=== PATIENT | male | born 1955 | race Caucasian/White ===

== ENCOUNTER → 2022-09-30 08:40 | Outpatient (CLI) | payer MEDICARE, SELFPAY ==
--- NOTE | 2022-09-30 | DI.ECHO.S_ITS ---
[facility]---------+ [facility] +---------+ : : [address] : : : : [id number] : : : : Phone: [phone]+ Echocardiogram Report + + :Name: JARED SHOEMAKER Study Date: 09/30/2022 Height: 70 in : :[facility] ReadingLocation: Weight: 249 lb : : Gender: Male BSA: 2.3 m2 : :: 1955 Age: 67 yrs BP: 165/100 mmHg: :Reason For Study: AORTIC STENOSIS, S/P TAVR : :Ordering Physician: CHARLOTTE WING : :M Performed By: Tania Haro : :Referring: CHARLOTTE WING M : + + Interpretation Summary 1) Normal left ventricular thickness and size with low normal systolic function (EF 50-55%). 2) Normal right ventricular size and function. 3) There is a bioprosthetic aortic valve that is well seated and opens well (mean gradient 9mmHg). There is trace aortic regurgitation. 4) There is mild to moderate mitral regurgitation. 5) Hypertension present during the study (BP 165/100mmHg). 6) No prior Echo available for comparison. Procedure: A two-dimensional transthoracic echocardiogram with color flow and Doppler was performed. The study quality was technically difficult. There is no prior echocardiogram noted for this patient. The heart rate ranged between 67-81 bpm during the study. The patient had occasional PVCs during the exam. Left Ventricle: The left ventricle is normal in size and wall thickness. The ejection fraction is estimated to be 50-55%. Septal motion is consistent with conduction abnormality. Diastolic parameters suggest probable normal left ventricular diastolic function and normal filling pressures. Right Ventricle: The right ventricle is normal in size and function. Atria: The left atrial size is normal. Right atrial size is normal. There is no Doppler evidence for an interatrial shunt. Mitral Valve: The mitral valve is grossly normal. There is mild to moderate mitral regurgitation. The mitral regurgitant jet is eccentrically directed. Aortic Valve: There is a bioprosthetic aortic valve. The prosthetic aortic valve appears to open well. The peak aortic velocity is 1.9 m/sec. The aortic valve mean gradient is 9 mmHg. There is trace aortic regurgitation. Tricuspid Valve: The tricuspid valve is normal in structure and function. There is mild tricuspid regurgitation. Pulmonic Valve: The pulmonic valve leaflets are thin and pliable; valve motion is normal. There is trace pulmonic regurgitation. Great Vessels: The aortic root is not well visualized but is probably normal size. The dimensions of the ascending aorta are normal. The IVC is of normal diameter and collapses greater than 50% with a sniff. This suggests a low right atrial pressure of 3 mm Hg. Pericardium/ Pleura There is no pericardial effusion. There is no pleural effusion. MMode/2D Measurements & Calculations LVIDd: 5.6 cm LVOT diam: 2.3 cm LVIDs: 4.1 cm asc Aorta Diam: 3.2 cm FS: 25.6 % Ao Arch Diam (Prox Trans): 2.8 cm EPSS: 0.78 cm IVSd: 0.86 cm LVPWd: 0.94 cm LV chirinos. diameter/BSA (cm/m^2): 2.4 LV sys. diameter/BSA (cm/m^2): 1.8 LA A2 area: 21.6 cm2 RA long axis: 5.1 cm LA A4 area: 17.5 cm2 RA area: 16.5 cm2 LA length (vol): 5.1 cm RA vol: 44.7 ml LA vol: 63.5 ml RA : 19.5 ml/m2 LA vol index: 27.7 ml/m2 IVC diam: 1.6 cm RVD1 (basal): 2.9 cm RVD2 (mid): 3.0 cm TAPSE: 2.0 cm Doppler Measurements & Calculations Ao V2 max: 196.8 cm/sec LVOT Max Biju: 79.4 cm/sec Ao V2 mean: 139.6 cm/sec LV V1 max P.5 mmHg Ao max P.6 mmHg LV V1 VTI: 16.4 cm Ao mean P.5 mmHg LOAN(I,D): 1.9 cm2 Ao V2 VTI: 37.7 cm LOAN(V,D): 1.7 cm2 sev ratio: 0.44 LOAN indexed to BSA (cm^2/m^2): 0.82 MV E max biju: 47.5 cm/sec PA V2 max: 127.4 cm/sec MV A max biju: 61.9 cm/sec PA V2 mean: 83.7 cm/sec MV E/A: 0.77 PA mean P.2 mmHg Med Peak E' Biju: 6.5 cm/sec E/E' med: 7.3 Lat Peak E' Biju: 7.5 cm/sec E/E' lat: 6.3 E/e' average: 6.8 MV dec time: 0.24 sec SV(LVOT): 71.0 ml Reading Physician:11:32 AM
== END ==
PROVIDERS: Family Provider Physician Assistant Medical; Referring Provider Specialist; Visit Provider Specialist
DX: I08.1 Rheumatic disorders of both mitral and tricuspid valves
CPT/HCPCS: 93306